=== PATIENT | male | born 1990 | race Two or more races ===

== ENCOUNTER 2017-02-21 12:40 | Emergency (ER) | payer MEDICAID, OTHER ==
[~2017-02-21] VITALS: Ht 175.3 cm; Wt 113.4 kg
[2017-02-21] MEDS ORDERED: ONDANSETRON 4MG/2ML VIAL (J2405) IV ONE (13:00)
[2017-02-21] MEDS ORDERED: MORPHINE 4 MG/ML 1ML SYRINGE IV ONE ×2 (13:00→14:15)
--- NOTE | 2017-02-21 13:39 | REP ---
Clinical: Trauma. Technique: AP, lateral, bilateral oblique views of the lumbosacral spine. Findings: Mild degenerative changes at the L1/L2 level with anterior spurring and endplate sclerosis. There is associated mild anterior wedge deformity of the L1 body which is of indeterminate age. Remainder of exam is normal. Alignment and lordosis is maintained. Disc spaces are normal. No evidence for spondylolysis or spondylolisthesis. Impression: Mild degenerative changes at the L1-L2 level. Subtle anterior wedge deformity at L1 of indeterminate age. Remainder of the examination is normal. Signed by Calvin Tobin MD 02/21/2017 01:30 P
[2017-02-21] MEDS ORDERED: KETOROLAC 30 MG/ML VIAL (J1885) IV ONE (15:30)
[2017-02-21] MEDS ORDERED: CYCL5TA PO (15:46)
[2017-02-21] MEDS ORDERED: NORCOTAB PO (15:46)
[2017-02-21] MEDS ORDERED: NAPR500T PO (15:46)
[2017-02-21 16:04] VITALS: BP 132/72
--- NOTE | 2017-02-24 09:41 | ED PDOC ---
Post-Departure Follow-Up ncog faxed formal report of ls spine film for fu Harish Martinez MD February 24, 2017 09:41
== END 2017-02-21 16:06 | disposition home or self-care (01) ==
LOC: EDBD 12:40 → M ED 13:45
DX: S39.012A Strain of muscle, fascia and tendon of lower back, initial encounter (principal); X50.0XXA Overexertion from strenuous movement or load, initial encounter; Y92.89 Other specified places as the place of occurrence of the external cause; Y93.89 Activity, other specified; Y99.8 Other external cause status; M51.36 Other intervertebral disc degeneration, lumbar region

== ENCOUNTER 2017-03-05 14:06 | Emergency (ER) | payer MEDICAID, OTHER, SELFPAY ==
[~2017-03-05] VITALS: Ht 175.3 cm; Wt 111.1 kg
[~2017-03-05 14:06] MED LIST: CYCL5TA PO; NAPR500T PO; NORCOTAB PO
[2017-03-05] MEDS ORDERED: NS 1,000 ML IV SCH (15:20)
--- NOTE | 2017-03-05 15:33 | ED PDOC ---
Post-Departure Follow-Up Patient presents to the ED for evaluation of an umbilical hernia. He states he noticed the hernia last week. He was seen by his PCP earlier this week and was advised to come to the ED if the hernia got bigger or he developed pain. He states that his PCP is arranging surgical follow-up for him. Today, he noticed that the hernia was larger and that he was having abdominal pain. 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 See his T- sheet for the remainder of his H&P and ROS. IV established with NS infusing at 100 ml/hr. Patient advised of NPO status. CBC, BMP, lactic acid and CT abd/ pelvis with IV contrast ordered for evaluation. ROLAND MORENO. SHAHEED Mar 05, 2017 15:33
[2017-03-05 15:41] LABS: BASO % 0.5 % (0.0-1.0); EOS # 0.2 K/mm3 (0.0-0.50); EOS % 1.9 % (0.0-3.0); LARGE UNSTAINED CELL # 0.1 K/mm3 (0.0-0.4); LARGE UNSTAINED CELL % 1.3 % (0.0-4.0); LYMPH # 1.7 K/mm3 (1.5-6.5); LYMPH % 15.8 % (24.0-44.0); MEAN CORPUSCULAR HEMOGLOBIN 31.1 pg (27.0-33.0); MEAN CORPUSCULAR HGB CONC 34.5 g/dl (32.0-36.5); MEAN CORPUSCULAR VOLUME 90.1 fl (80.0-96.0); MONO # 0.7 K/mm3 (0.0-0.8); MONO % 6.4 % (0.0-5.0); NEUTROPHILS # 7.4 K/mm3 (1.8-7.7); PLATELET COUNT, AUTOMATED 158 k/mm3 (150-450); RED CELL DISTRIBUTION WIDTH 12.5 % (11.5-14.5); WHITE BLOOD COUNT 10.1 K/mm3 (4.0-10.0)
[2017-03-05 16:02] LABS: ALBUMIN/GLOBULIN RATIO 0.98 (1.00-1.93); ALKALINE PHOSPHATASE 82 U/L (45-117); ALT/SGPT 38 U/L (12-78); ANION GAP 4 MEQ/L (8-16); AST/SGOT 19 U/L (15-37); BILIRUBIN,DIRECT 0.2 MG/DL (0.0-0.2); BILIRUBIN,TOTAL 0.7 MG/DL (0.2-1.0); BLOOD UREA NITROGEN 15 MG/DL (7-18); CALCIUM LEVEL 9.3 MG/DL (8.5-10.1); CARBON DIOXIDE LEVEL 28 MEQ/L (21-32); CHLORIDE LEVEL 107 MEQ/L (98-107); CREATININE FOR GFR 1.06 MG/DL (0.70-1.30); GLOMERULAR FILTRATION RATE > 60.0 (>60); GLUCOSE, FASTING 95 MG/DL (70-105); SODIUM LEVEL 139 MEQ/L (136-145); TOTAL PROTEIN 8.1 GM/DL (6.4-8.2)
[2017-03-05] MEDS ORDERED: ISOVUE-370 76% 100ML VIAL (Q9967) As Ordered ONE (16:17)
--- NOTE | 2017-03-05 17:18 | ED PDOC ---
Post-Departure Follow-Up Lab, CT results and discharge plan discussed with the patient. Instructed abdominal muscle strain only. Recommended using a lifting belt for abdominal and back support. Tylenol and Naprosyn/Ibuprofen as needed for pain. Also discussed worrisome signs to return to the ED for. Questions answered. Patient states understanding to the instructions. ROLAND MORENO. LIFE EDUCATOR Mar 05, 2017 17:17
[2017-03-05 17:28] VITALS: BP 143/85
--- NOTE | 2017-03-05 18:19 | REP ---
CT study of the abdomen and pelvis with IV but without oral contrast: History: Abdominal pain. Question umbilical hernia. No comparison study. CT contrast dose: 100 mL of Isovue [address] findings: Digital preliminary cherry sorter radiograph is unremarkable. The lung bases are clear. The liver and the spleen are normal in size homogeneous in texture. No adrenal lesion is seen. Pancreas is unremarkable. No abnormalities noted in the gallbladder. Small and large intestinal bowel loops are normal in the abdomen and pelvis. No ventral hernia is seen. No other abdominal wall defect is observed. Prostate, seminal vesicles and urinary bladder are unremarkable. The kidneys enhance symmetrically are morphologically intact. A normal appendix is visible. No bony destructive lesion is appreciated. The lung bases are clear. Impression: Unremarkable CT study of the abdomen and pelvis with IV contrast. No abdominal wall defect is seen. Signed by Tay Reyes MD 03/08/2017 06:55 P
== END 2017-03-05 17:30 | disposition home or self-care (01) ==
LOC: M ED 16:01
DX: S39.011A Strain of muscle, fascia and tendon of abdomen, initial encounter (principal); X58.XXXA Exposure to other specified factors, initial encounter; Y92.89 Other specified places as the place of occurrence of the external cause; Y93.89 Activity, other specified; Y99.8 Other external cause status; M54.9 Dorsalgia, unspecified; G89.29 Other chronic pain; E66.01 Morbid (severe) obesity due to excess calories; F17.210 Nicotine dependence, cigarettes, uncomplicated; Z79.1 Long term (current) use of non-steroidal anti-inflammatories (NSAID)
CPT/HCPCS: 74177; 80048; 80076; 83605; 83690; 85025; 96360; 96361; 99283; Q9967

== ENCOUNTER 2017-03-15 13:36 | Emergency (ER) | payer OTHER, MEDICAID ==
[~2017-03-15] VITALS: Ht 175.3 cm; Wt 112.6 kg
[2017-03-15 13:36] VITALS: BP 136/74
[~2017-03-15 13:36] MED LIST changes: -CYCL5TA PO; +CYCL5TAB PO
[2017-03-15] MEDS ORDERED: PRED50TA PO (15:08)
== END 2017-03-15 15:17 | disposition home or self-care (01) ==
LOC: M ED 14:39
DX: S39.012A Strain of muscle, fascia and tendon of lower back, initial encounter (principal); X50.0XXA Overexertion from strenuous movement or load, initial encounter; Y92.89 Other specified places as the place of occurrence of the external cause; Y93.89 Activity, other specified; Y99.0 Civilian activity done for income or pay; M54.9 Dorsalgia, unspecified; F17.200 Nicotine dependence, unspecified, uncomplicated; Z79.1 Long term (current) use of non-steroidal anti-inflammatories (NSAID)

== ENCOUNTER 2017-04-28 09:09 | Outpatient (RCR) | payer OTHER | END 2017-05-27 | disposition home or self-care (01) | LOC: M PT 09:09 | PROVIDERS: ATTEND Family Medicine | DX: Z51.89 Encounter for other specified aftercare (principal); M54.5 Low back pain ==

== ENCOUNTER → 2017-04-28 | Outpatient (CLI) | payer OTHER ==
[~2017-04-28] MED LIST changes: +PRED50TA PO
--- NOTE | 2017-04-29 01:37 | REP ---
Clinical: Joint pain. Technique: AP, lateral, bilateral oblique views right hand . Findings: Swelling over the third digit distal interphalangeal joint is appreciated without subcutaneous emphysema, fracture / dislocation, or radiodense foreign body. The remainder of the osseous structures and joint spaces are intact and normal. There is no evidence for acute fracture or dislocation. Surrounding soft tissues are unremarkable. No subcutaneous emphysema or radiodense foreign body. Impression: Swelling over the third digit distal phalanx and DIP joint. No acute fracture dislocation. No subcutaneous emphysema or radiodense foreign body. Signed by Calvin Tobin MD 04/29/2017 01:28 A
== END ==
LOC: M LAB 10:51
PROVIDERS: ATTEND Family Medicine
DX: M25.542 Pain in joints of left hand (principal); M25.541 Pain in joints of right hand

== ENCOUNTER → 2017-06-01 | Outpatient (CLI) | payer MEDICAID, OTHER ==
[2017-06-01 17:28] LABS: ALBUMIN/GLOBULIN RATIO 1.05 (1.00-1.93); ALKALINE PHOSPHATASE 96 U/L (45-117); ALT/SGPT 29 U/L (12-78); AST/SGOT 16 U/L (15-37); BILIRUBIN,DIRECT < 0.1 MG/DL (0.0-0.2); BILIRUBIN,TOTAL 0.3 MG/DL (0.2-1.0); TOTAL PROTEIN 7.8 GM/DL (6.4-8.2)
== END ==
LOC: M LAB 10:30
PROVIDERS: ATTEND Family Medicine
DX: B35.1 Tinea unguium (principal)

== ENCOUNTER → 2017-08-17 | Outpatient (CLI) | payer OTHER ==
[2017-08-17 10:17] LABS: ALBUMIN/GLOBULIN RATIO 1.11 (1.00-1.93); BILIRUBIN,DIRECT 0.1 MG/DL (0.0-0.2); BILIRUBIN,TOTAL 0.4 MG/DL (0.2-1.0); TOTAL PROTEIN 7.6 GM/DL (6.4-8.2)
== END ==
LOC: M LAB 09:15
PROVIDERS: ATTEND Family Medicine
DX: B35.1 Tinea unguium (principal)

== ENCOUNTER → 2017-09-28 | Outpatient (CLI) | payer OTHER ==
[2017-09-28 17:26] LABS: ALBUMIN 4.3 GM/DL (3.2-5.2); ALBUMIN/GLOBULIN RATIO 1.19 (1.00-1.93); ALKALINE PHOSPHATASE 99 U/L (45-117); ALT/SGPT 33 U/L (12-78); AST/SGOT 17 U/L (7-37); BILIRUBIN,DIRECT 0.2 MG/DL (0.0-0.2); BILIRUBIN,TOTAL 0.4 MG/DL (0.2-1.0); TOTAL PROTEIN 7.9 GM/DL (6.4-8.2)
== END ==
LOC: M LAB 15:31
DX: B35.1 Tinea unguium (principal)
CPT/HCPCS: 80076

== ENCOUNTER → 2017-11-17 | Outpatient (CLI) | payer OTHER ==
[2017-11-17 11:17] LABS: BASO # 0.1 10^3/uL (0.0-0.2); BASO % 0.3 % (0.0-1.0); EOS % 0.1 % (0.0-3.0); HEMOGLOBIN 15.4 g/dl (14.0-18.0); IMMATURE GRANULOCYTE % 0.5 % (0-3.0); LYMPH # 1.1 10^3/uL (1.5-6.5); LYMPH % 5.4 % (24.0-44.0); MEAN CORPUSCULAR HEMOGLOBIN 29.5 pg (27.0-33.0); MEAN CORPUSCULAR VOLUME 84.3 fl (80.0-96.0); MONO # 1.6 10^3/uL (0.0-0.8); MONO % 7.5 % (0.0-5.0); NEUTROPHILS # 17.9 10^3/uL (1.8-7.7); NEUTROPHILS % 86.2 % (36.0-66.0); PLATELET COUNT, AUTOMATED 202 10^3/uL (150-450); RED BLOOD COUNT 5.22 10^6/uL (4.30-6.10); RED CELL DISTRIBUTION WIDTH 12.4 % (11.5-14.5); WHITE BLOOD COUNT 20.7 10^3/uL (4.0-10.0)
[2017-11-17 12:02] LABS: ANION GAP 7 MEQ/L (8-16); BLOOD UREA NITROGEN 14 MG/DL (7-18); CALCIUM LEVEL 8.9 MG/DL (8.5-10.1); CARBON DIOXIDE LEVEL 27 MEQ/L (21-32); CHLORIDE LEVEL 101 MEQ/L (98-107); CREATININE FOR GFR 1.08 MG/DL (0.70-1.30); GLOMERULAR FILTRATION RATE > 60.0 (>60); GLUCOSE, FASTING 95 MG/DL (70-100); POTASSIUM SERUM 3.9 MEQ/L (3.5-5.1); SODIUM LEVEL 135 MEQ/L (136-145)
== END ==
LOC: M LAB 10:53
DX: J06.9 Acute upper respiratory infection, unspecified (principal)
CPT/HCPCS: 71046

== ENCOUNTER 2017-11-20 21:22 | Emergency (ER) | payer OTHER ==
[2017-11-20 22:43] LABS: BASO # 0.1 10^3/uL (0.0-0.2); BASO % 0.3 % (0.0-1.0); EOS % 0.2 % (0.0-3.0); HEMATOCRIT 38.9 % (42.0-52.0); HEMOGLOBIN 13.9 g/dl (14.0-18.0); IMMATURE GRANULOCYTE % 0.8 % (0-3.0); LYMPH # 1.3 10^3/uL (1.5-6.5); MEAN CORPUSCULAR HEMOGLOBIN 29.2 pg (27.0-33.0); MEAN CORPUSCULAR HGB CONC 35.7 g/dl (32.0-36.5); MEAN CORPUSCULAR VOLUME 81.7 fl (80.0-96.0); MONO # 1.7 10^3/uL (0.0-0.8); MONO % 10.1 % (0.0-5.0); NEUTROPHILS # 13.3 10^3/uL (1.8-7.7); NEUTROPHILS % 80.6 % (36.0-66.0); PLATELET COUNT, AUTOMATED 184 10^3/uL (150-450); RED BLOOD COUNT 4.76 10^6/uL (4.30-6.10); RED CELL DISTRIBUTION WIDTH 11.9 % (11.5-14.5); WHITE BLOOD COUNT 16.5 10^3/uL (4.0-10.0)
[2017-11-20] MEDS: NS 1,000 ML IV (22:45)
[2017-11-20 23:00] LABS: LACTIC ACID SEPSIS PROTOCOL 1.7 MMOL/L (0.4-2.0)
[2017-11-20] MEDS: ONDANSETRON 4MG/2ML VIAL (J2405) IV (23:00)
[2017-11-20 23:01] LABS: ALBUMIN 3.5 GM/DL (3.2-5.2); ALBUMIN/GLOBULIN RATIO 0.81 (1.00-1.93); ALKALINE PHOSPHATASE 91 U/L (45-117); ALT/SGPT 26 U/L (12-78); ANION GAP 11 MEQ/L (8-16); AST/SGOT 16 U/L (7-37); BILIRUBIN,DIRECT 0.2 MG/DL (0.0-0.2); BILIRUBIN,TOTAL 0.6 MG/DL (0.2-1.0); BLOOD UREA NITROGEN 12 MG/DL (7-18); CALCIUM LEVEL 8.7 MG/DL (8.5-10.1); CARBON DIOXIDE LEVEL 23 MEQ/L (21-32); CHLORIDE LEVEL 101 MEQ/L (98-107); CPK CREATINE PHOSPHOKINASE 163 U/L (39-308); CREATININE FOR GFR 1.12 MG/DL (0.70-1.30); GLOMERULAR FILTRATION RATE > 60.0 (>60); GLUCOSE, FASTING 109 MG/DL (70-100); MB/CK RELATIVE INDEX 0.61 (< OR =4); NT-PRO BNP 175 PG/ML (<125); POTASSIUM SERUM 3.2 MEQ/L (3.5-5.1); SODIUM LEVEL 135 MEQ/L (136-145); THYROXINE (T4) 10.8 UG/DL (4.5-12.0); TOTAL PROTEIN 7.8 GM/DL (6.4-8.2); TROPONIN I < 0.02 NG/ML (< 0.10)
[2017-11-20 23:06] LABS: THYROID STIMULATING HORMONE 0.672 uIU/ML (0.358-3.740)
[2017-11-20 23:21] LABS: ETHYL ALCOHOL (ETHANOL) < 0.003 % (0.000-0.010)
[2017-11-20 23:40] LABS: ABG BASE EXCESS 1.1 (-2.0-2.0); ABG HCO3 23.9 MEQ/L (22.0-26.0); ABG O2 SATURATION 96.2 % (95.0-99.0); ABG PARTIAL PRESSURE CO2 32.4 mmHg (35.0-45.0); ABG PARTIAL PRESSURE O2 76.9 mmHg (75.0-100.0); ABG STANDARD HCO3 25.4 MEQ/L (22.0-26.0); ABG TOTAL CO2 24.9 MEQ/L (22.0-29.0); ABG pH (ARTERIAL) 7.485 UNITS (7.350-7.450)
[2017-11-20] MEDS: PIPERACILLIN/TAZOBACTAM SOD 4.5 GM in APPROPRIATE DILUENT 1 EA IV (23:45)
[2017-11-20] MEDS: LR 1,000 ML IV (23:45)
[2017-11-20] MEDS: POTASSIUM CHLORIDE 10 MEQ SR TABLET PO (23:45)
[2017-11-20 23:46] LABS: KETONE, URINE AUTO RFX TRACE mg/dL (NEGATIVE); LEUKOCYTE ESTERASE UR AUTO RFX NEGATIVE (NEGATIVE); NITRITE, URINE AUTO RFX NEGATIVE (NEGATIVE); RBC, URINE AUTO RFX 0 /HPF (0-3); SPECIFIC GRAVITY UR AUTO RFX 1.004 (1.002-1.035); SQUAM EPITHELIAL CELL UR AURFX 0 /HPF (0-6); WBC, URINE AUTO RFX 0 /HPF (0-3)
[2017-11-20 23:52] LABS: MAGNESIUM LEVEL 2.1 MG/DL (1.8-2.4)
[2017-11-21 00:03] LABS: AMPHETAMINES LEVEL URINE NEGATIVE (NEGATIVE); BARBITURATES URINE NEGATIVE (NEGATIVE); BENZODIAZEPINES URINE NEGATIVE (NEGATIVE); CANNABINOIDS URINE POSITIVE (NEGATIVE); COCAINE METABOLITE URINE POSITIVE (NEGATIVE); METHADONE URINE NEGATIVE (NEGATIVE); OPIATES URINE NEGATIVE (NEGATIVE); PHENCYCLIDINE URINE NEGATIVE (NEGATIVE)
[2017-11-21] MEDS: CEFDINIR 300 MG CAP (OMNICEF) PO (00:15)
[2017-11-21] MEDS ORDERED: ZOSYN 4.5 GM As Ordered (00:52)
[2017-11-21] MEDS: IPRATROPIUM 0.5MG/ALBUTEROL 2.5MG INH SOL UD 3ML (DUONEB)(J7620) NEB ×3 (01:15→01:16)
== END 2017-11-21 01:47 | disposition home or self-care (01) ==
LOC: M ED 11-21 01:47
DX: J18.9 Pneumonia, unspecified organism (principal); J45.909 Unspecified asthma, uncomplicated; F17.200 Nicotine dependence, unspecified, uncomplicated
CPT/HCPCS: J2405

== ENCOUNTER 2019-11-14 18:18 | Emergency (ER) | payer OTHER, SELFPAY ==
[~2019-11-14] VITALS: Ht 175.3 cm; Wt 118.0 kg
[~2019-11-14 18:18] MED LIST changes: +CEFD1CAP8 PO; +HYDR-3715 PO; +NAPR-837 PO; -NAPR500T PO; -NORCOTAB PO; +TESS100C PO; +ZOFR4TAB16 PO
[2019-11-14] MEDS ORDERED: NS 1,000 ML IV ONE (19:45)
[2019-11-14 20:39] LABS: BASO # 0.1 10^3/uL (0.0-0.2); BASO % 0.6 % (0.0-1.0); EOS # 0.2 10^3/uL (0.0-0.5); EOS % 1.8 % (0.0-3.0); HEMATOCRIT 47.2 % (42.0-52.0); HEMOGLOBIN 16.5 g/dl (13.5-17.5); LYMPH # 2.7 10^3/uL (1.5-5.0); LYMPH % 29.2 % (24.0-44.0); MEAN CORPUSCULAR HEMOGLOBIN 30.6 pg (27.0-33.0); MEAN CORPUSCULAR VOLUME 87.4 fl (80.0-96.0); MONO # 0.9 10^3/uL (0.0-0.8); MONO % 9.6 % (0.0-5.0); NEUTROPHILS # 5.4 10^3/uL (1.5-8.5); NEUTROPHILS % 58.6 % (36.0-66.0); PLATELET COUNT, AUTOMATED 150 10^3/uL (150-450); WHITE BLOOD COUNT 9.3 10^3/uL (4.0-10.0)
[2019-11-14] MEDS ORDERED: ISOVUE-370 76% 100ML VIAL (Q9967) As Ordered ONE (20:45)
[2019-11-14 20:50] LABS: INR 1.04; PROTHROMBIN TIME 13.3 SECONDS (11.8-14.0)
[2019-11-14 20:51] LABS: PARTIAL THROMBOPLASTIN TIME 31.3 SECONDS (25.0-38.4)
[2019-11-14 21:00] LABS: ALBUMIN 4.2 GM/DL (3.2-5.2); BILIRUBIN,DIRECT 0.2 MG/DL (0.0-0.2); BILIRUBIN,TOTAL 0.4 MG/DL (0.2-1.0)
--- NOTE | 2019-11-14 21:30 | REPVR ---
PROCEDURE INFORMATION: Exam: CT Abdomen And Pelvis With Contrast Exam date and time: 11/14/2019 9:07 PM Age: 29 years old Clinical indication: Abdominal pain; Other: Left sided; Additional info: Left abd pain, lower gi bleed TECHNIQUE: Imaging protocol: Computed tomography of the abdomen and pelvis with intravenous contrast. Radiation optimization: All CT scans at this facility use at least one of these dose optimization techniques: automated exposure control; mA and/or kV adjustment per patient size (includes targeted exams where dose is matched to clinical indication); or iterative reconstruction. Contrast material: ISOVUE 370; Contrast volume: 100 ml; Contrast route: IV; COMPARISON: CT ABD/PEL W/IV CONTRAST ONLY 03/05/2017 4:20 PM FINDINGS: Liver: The liver attenuation is 50 Hounsfield units and the spleen is 96 Hounsfield units. Gallbladder and bile ducts: Normal. No calcified stones. No ductal dilation. Pancreas: Normal. No ductal dilation. Spleen: Normal. No splenomegaly. Adrenals: Normal. No mass. Kidneys and ureters: Normal. No hydronephrosis. Stomach and bowel: Unremarkable. No obstruction. No mucosal thickening. Appendix: A normal appendix is seen. Intraperitoneal space: Unremarkable. No free air. No significant fluid collection. Vasculature: Unremarkable. No abdominal aortic aneurysm. Lymph nodes: Unremarkable. No enlarged lymph nodes. Bladder: Unremarkable as visualized. Reproductive: Unremarkable as visualized. Bones/joints: Unremarkable. No acute fracture. Soft tissues: Unremarkable. IMPRESSION: 1. There has been little change from 03/05/2017. No acute interval process is identified. 2. Fatty infiltration of the liver. Electronically signed by: Lamont Cooper On 11/14/2019 21:30:16 PM
[2019-11-14] MEDS ORDERED: ANUS2.5C2 TOP (21:47)
[2019-11-14] MEDS ORDERED: MIRA3350 PO (21:47)
[2019-11-14 21:50] VITALS: BP 148/80
== END 2019-11-14 21:55 | disposition home or self-care (01) ==
LOC: M ED 18:18
DX: K62.5 Hemorrhage of anus and rectum (principal); K60.0 Acute anal fissure; K76.0 Fatty (change of) liver, not elsewhere classified; F17.200 Nicotine dependence, unspecified, uncomplicated
CPT/HCPCS: 74177; 80047; 80076; 85025; 85610; 85730; 86850; 86900; 86901; 99284; Q9967